=== PATIENT | male | born 1935 | race African-American/Black ===

== ENCOUNTER 2017-02-24 15:19 | Emergency (ER) | payer MEDICARE, OTHER ==
[2017-02-24 15:29] VITALS: BP 133/69
--- NOTE | 2017-02-24 16:30 | RAD ---
HISTORY: Fatigue COMPARISONS: None VIEWS:1: Single frontal portable view of the chest at 4:08 PM FINDINGS: LINES AND TUBES: None. CARDIOMEDIASTINAL SILHOUETTE: The cardiomediastinal silhouette is normal for portable technique. PLEURA: The costophrenic angles are sharp. No pleural abnormalities are noted. LUNG PARENCHYMA: The lungs are clear. ABDOMEN: The upper abdomen is clear. There is no subphrenic gas. BONES AND SOFT TISSUES: No bone or soft tissue abnormalities are noted. IMPRESSION: NO ACTIVE CARDIOPULMONARY DISEASE.
[2017-02-24 16:38] LABS: Hematocrit 37 % (42-52); Hemoglobin 12.3 g/dl (14.0-18.0); Mean Corpuscular HGB Conc 33 g/dl (31-36); Mean Corpuscular Hemoglobin 32 pg (27-31); Mean Corpuscular Volume 97 fL (80-94); Mean Platelet Volume 8 um3 (7.4-10.4); Red Blood Count 3.84 10^6/ul (4.0-5.4); Red Cell Distribution Width 15 % (10.5-15); White Blood Count 4.7 10^3/ul (3.5-10.8)
[2017-02-24 16:55] LABS: Troponin I 0.01 ng/mL (<0.04)
[2017-02-24 17:01] LABS: Albumin 3.5 g/dL (3.2-5.2); BUN/Creatinine Ratio 15.2 (8-20); C Reactive Protein 2.45 mg/L (< 5.00); Calcium 8.9 mg/dL (8.6-10.3); EGFR African American 57.3 (>60); EGFR Non-African American 44.6 (>60); Globulin 3.2 g/dL (2-4); Potassium 4.2 mmol/L (3.5-5.0); Total Bilirubin 0.4 mg/dL (0.2-1.0); Total Protein 6.7 g/dL (6.4-8.9)
[2017-02-24 17:35] LABS: Urine Bacteria Absent (Absent); Urine Bilirubin Negative (Negative); Urine Glucose Negative (Negative); Urine Nitrite Negative (Negative)
--- NOTE | 2017-02-27 15:36 | ED ---
Tom Altamirano Alfonso, scribed for Jose Daniel Santos MD on 02/24/17 at 1557 . Altered Mental Status - HPI Summary HPI Summary: This patient is an 81 year old male presenting to [facility] for altered mental status since a few days ago. He reports "feeling fine." His reports him sleeping more often and worsening forgetfulness. He denies pain, cough, and change in appetite. Symptoms aggravated and alleviated by nothing. - History Of Current Complaint Chief Complaint: EDGeneral Stated Complaint: GENERAL ILLNESS Time Seen by Provider: 02/24/17 15:38 Hx Obtained From: Patient, Family/Flight Manager - Onset/Duration: Still Present Timing: Constant, Lasting Days - A few days ago Severity Initially: Moderate Severity Currently: Moderate Aggravating Factor(s): Nothing Alleviating Factor(s): Nothing Associated Signs And Symptoms: Positive: Negative - Negative pain, cough, and change in appetite. PMH/Surg Hx/FS Hx/Imm Hx Sensory History: Denies: Hx Deafness Opthamlomology History: Denies: Hx Legally Blind Infectious Disease History: No Infectious Disease History: Denies: Traveled Outside the [place] in Last 30 Days - Family History Known Family History: Positive: Other - Denies cancer Negative: Cardiac Disease Review of Systems Negative: Cough Positive: Arthralgia - Negative pain Neurological: Other - Positive AMS per reporting him sleeping more often and worsening forgetfulness; Negative change in appetite All Other Systems Reviewed And Are Negative: Yes Physical Exam Triage Information Reviewed: Yes Vital Signs On Initial Exam: Initial Vitals Temp Pulse Resp BP Pulse Ox 97.2 F 123 20 133/69 100 02/24/17 15:27 02/24/17 15:27 02/24/17 15:27 02/24/17 15:27 02/24/17 15:27 Vital Signs Reviewed: Yes Appearance: Positive: Well-Appearing, No Pain Distress Skin: Positive: Warm, Skin Color Reflects Adequate Perfusion, Dry Head/Face: Positive: Normal Head/Face Inspection Eyes: Positive: Normal ENT: Positive: Normal ENT inspection Neck: Positive: Supple, Nontender Respiratory/Lung Sounds: Positive: Clear to Auscultation, Breath Sounds Present Cardiovascular: Positive: RRR Abdomen Description: Positive: Nontender, Soft Bowel Sounds: Positive: Present Musculoskeletal: Positive: Normal Neurological: Positive: Normal, Sensory/Motor Intact, CN Intact II-III. Negative: Alert, Oriented to Person Place, Time - Alert, oriented to person and place. Not oriented to time. Psychiatric: Positive: Normal Diagnostics - Vital Signs Vital Signs Temp Pulse Resp BP Pulse Ox 02/24/17 15:27 97.2 F 123 20 133/69 100 - Laboratory Lab Results: Lab Results 02/24/17 02/24/17 02/24/17 Range/Units 16:24 16:24 16:24 WBC 4.7 (3.5-10.8) 10^3/ul RBC 3.84 L (4.0-5.4) 10^6/ul Hgb 12.3 L (14.0-18.0) g/dl Hct 37 L (42-52) % MCV 97 H (80-94) fL MCH 32 H (27-31) pg MCHC 33 (31-36) g/dl RDW 15 (10.5-15) % Plt Count 158 (150-450) 10^3/ul MPV 8 (7.4-10.4) um3 Neut % (Auto) 56.4 (38-83) % Lymph % (Auto) 31.3 (25-47) % [place] % (Auto) 8.1 (1-9) % Eos % (Auto) 3.0 (0-6) % Baso % (Auto) 1.2 (0-2) % Absolute Neuts (auto) 2.7 (1.5-7.7) 10^3/ul Absolute Lymphs (auto) 1.5 (1.0-4.8) 10^3/ul Absolute Monos (auto) 0.4 (0-0.8) 10^3/ul Absolute Eos (auto) 0.1 (0-0.6) 10^3/ul Absolute Basos (auto) 0.1 (0-0.2) 10^3/ul Absolute Nucleated RBC 0.01 10^3/ul Nucleated RBC % 0.1 INR (Anticoag Therapy) 1.01 (0.89-1.11) Sodium 138 (133-145) mmol/L Potassium 4.2 (3.5-5.0) mmol/L Chloride 105 (101-111) mmol/L Carbon Dioxide 28 (22-32) mmol/L Anion Gap 5 (2-11) mmol/L BUN 23 (6-24) mg/dL Creatinine 1.51 H (0.67-1.17) mg/dL Est GFR ( Amer) 57.3 (>60) Est GFR (Non-Af Amer) 44.6 (>60) BUN/Creatinine Ratio 15.2 (8-20) Glucose 100 (70-100) mg/dL Lactic Acid (0.5-2.0) mmol/L Calcium 8.9 (8.6-10.3) mg/dL Total Bilirubin 0.40 (0.2-1.0) mg/dL AST 26 (13-39) U/L ALT 37 (7-52) U/L Alkaline Phosphatase 70 (34-104) U/L Troponin I 0.01 (<0.04) ng/mL C-Reactive Protein 2.45 (< 5.00) mg/L Total Protein 6.7 (6.4-8.9) g/dL Albumin 3.5 (3.2-5.2) g/dL Globulin 3.2 (2-4) g/dL Albumin/Globulin Ratio 1.1 (1-3) Urine Color Urine Appearance Urine pH (5-9) Ur Specific [place] (1.010-1.030) Urine Protein (Negative) Urine Ketones (Negative) Urine Blood (Negative) Urine Nitrate (Negative) Urine Bilirubin (Negative) Urine Urobilinogen (Negative) Ur Leukocyte Esterase (Negative) Urine WBC (Auto) (Absent) Urine RBC (Auto) (Absent) Ur Squamous Epith Cells (Absent) Urine Bacteria (Absent) Urine Glucose (Negative) 02/24/17 02/24/17 Range/Units 16:24 17:26 WBC (3.5-10.8) 10^3/ul RBC (4.0-5.4) 10^6/ul Hgb (14.0-18.0) g/dl Hct (42-52) % MCV (80-94) fL MCH (27-31) pg MCHC (31-36) g/dl RDW (10.5-15) % Plt Count (150-450) 10^3/ul MPV (7.4-10.4) um3 Neut % (Auto) (38-83) % Lymph % (Auto) (25-47) % [place] % (Auto) (1-9) % Eos % (Auto) (0-6) % Baso % (Auto) (0-2) % Absolute Neuts (auto) (1.5-7.7) 10^3/ul Absolute Lymphs (auto) (1.0-4.8) 10^3/ul Absolute Monos (auto) (0-0.8) 10^3/ul Absolute Eos (auto) (0-0.6) 10^3/ul Absolute Basos (auto) (0-0.2) 10^3/ul Absolute Nucleated RBC 10^3/ul Nucleated RBC % INR (Anticoag Therapy) (0.89-1.11) Sodium (133-145) mmol/L Potassium (3.5-5.0) mmol/L Chloride (101-111) mmol/L Carbon Dioxide (22-32) mmol/L Anion Gap (2-11) mmol/L BUN (6-24) mg/dL Creatinine (0.67-1.17) mg/dL Est GFR ( Amer) (>60) Est GFR (Non-Af Amer) (>60) BUN/Creatinine Ratio (8-20) Glucose (70-100) mg/dL Lactic Acid 1.5 (0.5-2.0) mmol/L Calcium (8.6-10.3) mg/dL Total Bilirubin (0.2-1.0) mg/dL AST (13-39) U/L ALT (7-52) U/L Alkaline Phosphatase (34-104) U/L Troponin I (<0.04) ng/mL C-Reactive Protein (< 5.00) mg/L Total Protein (6.4-8.9) g/dL Albumin (3.2-5.2) g/dL Globulin (2-4) g/dL Albumin/Globulin Ratio (1-3) Urine Color Yellow Urine Appearance Clear Urine pH 5.0 (5-9) Ur Specific [place] 1.019 (1.010-1.030) Urine Protein 2+(100 mg/dl) H (Negative) Urine Ketones Negative (Negative) Urine Blood Negative (Negative) Urine Nitrate Negative (Negative) Urine Bilirubin Negative (Negative) Urine Urobilinogen Negative (Negative) Ur Leukocyte Esterase Negative (Negative) Urine WBC (Auto) Absent (Absent) Urine RBC (Auto) Absent (Absent) Ur Squamous Epith Cells Present H (Absent) Urine Bacteria Absent (Absent) Urine Glucose Negative (Negative) Result Diagrams: 02/24/17 16:24 02/24/17 16:24 Lab Statement: Any lab studies that have been ordered have been reviewed, and results considered in the medical decision making process. - Radiology CXR Xray Interpretation: No Acute Changes - NO ACTIVE CARDIOPULMONARY DISEASE. Radiology Interpretation Completed By: Radiologist Altered Mental Statu Course/Dx - Course Course Of Treatment: Mr. Sanchez was brought in by his when they felt they could not get a timely appointment with his PMD. He has been in decline and getting gradually weaker and she can see a time when she won't be able to take care of him. His exam and W/U here were negative for an acute process and he is referred back to his PMD. - Diagnoses Discharge Diagnoses: Weakness Discharge - Discharge Plan Condition: Stable Disposition: HOME Patient Education Materials: Weakness (ED) Referrals: [facility] [Provider Group] - 3 Days The documentation as recorded by the Tom kwon Alfonso accurately reflects the service I personally performed and the decisions made by me, Jose Daniel Santos MD.
== END 2017-02-24 18:14 | disposition home or self-care (01) ==
LOC: ED 15:19
DX: R53.1 Weakness (principal); R53.83 Other fatigue; R41.82 Altered mental status, unspecified
CPT/HCPCS: 36415; 71010; 80053; 81003; 81015; 83605; 84484; 85025; 85610; 86140; 87040; 99282

== ENCOUNTER 2017-04-24 18:12 | Emergency (ER) | payer MEDICARE, OTHER ==
[2017-04-24 18:17] VITALS: BP 151/69
--- NOTE | 2017-04-24 18:49 | UC ---
Mayank Altamirano Benjamin, scribed for Timothy Goodrich MD on 04/24/17 at 1837 . Lower Extremity/Ankle HPI - HPI Summary HPI Summary: 82yo male comes to for left foot/ankle swelling since last Monday. Pt denies any pain in calf or anywhere else. Pt has hx of cardiac stents but none in the legs or in his groin. No Hx of DVT. Pt takes Lasix pills. Denies any SOB or injuries. Pt had similar swelling 2-3 months ago that spontaneously resolved after limiting use of his feet and low sodium diet. - History of Current Complaint Chief Complaint: UCLowerExtremity Stated Complaint: SWELLING IN LEG Time Seen by Provider: 04/24/17 18:20 Hx Obtained From: Patient, Family/Director Drug - Onset/Duration: Lasting Days - since Monday, Still Present Severity Initially: Mild Severity Currently: Moderate Pain Intensity: 0 Pain Scale Used: 0-10 Numeric Aggravating Factor(s): Nothing Alleviating Factor(s): Nothing Able to Bear Weight: Yes - Allergies/Home Medications Allergies/Adverse Reactions: Allergies Allergy/AdvReac Type Severity Reaction Status Date / Time No Known Allergies Allergy Verified 04/24/17 18:18 Home Medications: Home Medications Allopurinol TAB* [Zyloprim 100 MG TAB*] 04/24/17 [History] Atorvastatin* [Lipitor 10 MG*] 04/24/17 [History] Escitalopram Oxalate [Lexapro 10 mg] 04/24/17 [History Confirmed 04/24/17] Furosemide TAB* [Lasix TAB*] 04/24/17 [History] Losartan TAB* [Cozaar TAB*] 04/24/17 [History] Memantine XR CAP* [Namenda XR CAP*] 04/24/17 [History] Omeprazole CAP* [Prilosec CAP* 20 MG] 04/24/17 [History] PMH/Surg Hx/FS Hx/Imm Hx Cardiovascular History: Hypertension, Other - cardiac stents Other Cardiovascular History: . - Surgical History Surgical History: Yes Surgery Procedure, Year, and Place: Stents - Family History Known Family History: Positive: Other - Denies cancer Negative: Cardiac Disease - Social History Occupation: Employed Full-time - [place]: With Family Alcohol Use: None Substance Use Type: None Smoking Status (MU): Never Smoked Tobacco Review of Systems Constitutional: Negative Skin: Negative Eyes: Negative ENT: Negative Respiratory: Negative Cardiovascular: Negative Gastrointestinal: Negative Genitourinary: Negative Motor: Negative Neurovascular: Negative Musculoskeletal: Edema - left leg swelling Neurological: Negative Psychological: Negative All Other Systems Reviewed And Are Negative: Yes Physical Exam Triage Information Reviewed: Yes Appearance: Well-Appearing, No Pain Distress, Well-Nourished Vital Signs: Initial Vital Signs Temp 97.8 F 04/24/17 18:13 Pulse 101 04/24/17 18:13 Resp 18 04/24/17 18:13 BP 151/69 04/24/17 18:13 Pulse Ox 99 04/24/17 18:13 Vital Signs Reviewed: Yes Eyes: Positive: Conjunctiva Clear ENT: Positive: Normal ENT inspection, Hearing grossly normal Neck: Positive: Supple, Nontender Respiratory: Positive: Lungs clear, Normal breath sounds, No respiratory distress Cardiovascular: Positive: RRR, Pulses Normal, Brisk Capillary Refill Abdomen Description: Positive: Nontender, Soft Bowel Sounds: Positive: Present Musculoskeletal: Positive: ROM Intact, Edema @ - left foot and ankle., Other: - no swelling in calf, no tenderness in foot, ankle, calf, or the rest of his left leg Neurological: Positive: Alert, Muscle Tone Normal Psychological: Positive: Age Appropriate Behavior Skin: Negative: rashes, breakdown Lower Extremity Course/Dx - Course Course Of Treatment: Reviewed pts medication and allergy lists. High blood pressure noted. Blood pressure noted and patient informed to follow up with PCP. NO CLINICAL EVIDENCE OF DVT AT THIS TIME. NO SOB/LUNGS ARE CTA. FOOT IS NOT PAINFUL OR TENDER. LABS DRAWN FOR F/U WITH PMD TOMORROW. - Differential Dx/Diagnosis Provider Diagnoses: LEFT FOOT AND ANKLE SWELLING. Hypertension. Discharge - Discharge Plan Condition: Stable Disposition: HOME Patient Education Materials: Hypertension (ED), Edema (ED) Referrals: Breana Price MD [Medical Doctor] - [facility] [Provider Group] Additional Instructions: Your Blood Pressure was elevated today, please follow up with your primary care physician for follow up within one week. FOLLOW UP WITH YOUR DOCTOR. CALL HER TOMORROW FOR FURTHER EVALUATION OF YOUR SWOLLEN LEFT FOOT AND ANKLE. YOU HAD BLOOD WORK DONE IN THE URGENT CARE CLINIC TODAY. THE RESULTS WILL BE AVAILABLE TOMORROW, 04/25/17; DISCUSS THIS WITH YOUR DOCTOR. YOUR CALF AND THE REST OF YOUR LEG WERE NOT SWOLLEN OR TENDER. AT THIS TIME IT DOES NOT APPEAR THAT YOU HAVE A BLOOD CLOT IN YOUR LEG. YOU MAY NEED AN ULTRASOUND OF YOUR LEG IF THE SWELLING SPREADS OR PERSISTS. GO TO FOR ANY WORSENING OF YOUR CONDITION; SPREAD OF THE SWELLING, SHORTNESS OF BREATH, YOU FEEL ILL OR QUESTIONS OR CONCERNS. The documentation as recorded by the Mayank kwon Benjamin accurately reflects the service I personally performed and the decisions made by me, Timothy Goodrich MD.
[2017-04-25 11:00] LABS: Hematocrit 38 % (42-52); Hemoglobin 12.6 g/dl (14.0-18.0); Mean Corpuscular HGB Conc 33 g/dl (31-36); Mean Corpuscular Hemoglobin 33 pg (27-31); Mean Corpuscular Volume 99 fL (80-94); Mean Platelet Volume 9 um3 (7.4-10.4); Red Blood Count 3.84 10^6/ul (4.0-5.4); Red Cell Distribution Width 15 % (10.5-15); White Blood Count 5.7 10^3/ul (3.5-10.8)
--- NOTE | 2017-04-25 18:50 | ED ---
Course/Dx - Course Course Of Treatment: LAB RESULTS OF CBC AND BNP;. CALL PATIENT, LET HER KNOW HER BNP IS ELEVATED WHICH COULD MEAN CHF. - Diagnoses Provider Diagnoses: Dyspnea
[2017-04-25 20:46] LABS: Albumin 3.5 g/dL (3.2-5.2); BUN/Creatinine Ratio 15.3 (8-20); Calcium 8.8 mg/dL (8.6-10.3); EGFR Non-African American 49.7 (>60); Globulin 3.9 g/dL (2-4); Potassium 4.4 mmol/L (3.5-5.0); Total Bilirubin 0.4 mg/dL (0.2-1.0); Total Protein 7.4 g/dL (6.4-8.9); Uric Acid 7.3 mg/dL (4.4-7.6)
== END 2017-04-24 18:45 | disposition home or self-care (01) ==
LOC: UCEAST 18:12
DX: R60.0 Localized edema (principal); M25.472 Effusion, left ankle; I10 Essential (primary) hypertension; Z95.5 Presence of coronary angioplasty implant and graft
CPT/HCPCS: 36415; 80053; 83880; 84550; 85025; 99211; G0463

== ENCOUNTER 2019-01-29 20:45 | Emergency (ER) | payer MEDICARE, OTHER ==
[2019-01-29] MEDS ORDERED: Calcium CHLORIDE 10% SYRINGE* 1 GM/10 ML ONE (20:50)
[2019-01-29] MEDS ORDERED: Sodium Bicarbonate 8.4%* 50 ML SYRINGE ONE ×2 (20:51→21:00)
[2019-01-29] MEDS ORDERED: EPINEPHrine SYR 0.1MG/ML* SYRINGE ONE ×3 (20:52→20:59)
[2019-01-29 21:07] VITALS: BP 0/0
--- NOTE | 2019-01-29 21:16 | ED ---
Cardiac Resuscitation - HPI Summary HPI Summary: LEVEL 5 CAVEAT Patient arrival to ED at 184. The patient is an 83 y/o M presenting to [facility] arriving by ambulance with chief complaint of vomiting that turned to respiratory distress and respiratory failure, leading to intubation and cardiac arrest with EMS arriving to the patient's home at 2005. EMS reports that the patient had a pulse of 70 BPM on arrival, but then went into asystole prior to starting two rounds of CPR starting around 2014 and administering two doses of epinephrine in route. CPR continued until arrival until expiration at 2100. - History of Current Complaint Stated Complaint: ABC PER EMS Hx Obtained From: EMS Hx From Patient Unobtainable Due To: Extremis - patient in cardiac arrest upon arrival Onset/Duration: Minutes/Hours: - 30 mintues Arrest Witnessed: Yes - Allergies/Home Medications Allergies/Adverse Reactions: Allergies Allergy/AdvReac Type Severity Reaction Status Date / Time No Known Allergies Allergy Verified 04/24/17 18:18 - Past Medical History Past Medical History: Unobtainable Due to Extremis, Other: - cardiac hx with pacemaker - Family History Family History: Unobtainable Due to Extremis - Social History Social History: Lives with Family - Review of Systems Review of Systems: Unobtainable Due to Extremis - LEVEL 5 CAVEAT - vomiting and respiratory distress Physical Examination - Summary Physical Exam Summary: ENT: emesis from nose Eyes: Pupils fixed and dilated Respiratory: difficulty opening airway Abdomen: grossly distended abd - Physical Examination Triage Information Reviewed: Yes Physical Exam Additional Comments: LEVEL 5 CAVEAT Cardiac Resus. Course/Dx - Course Course Of Treatment: LEVEL 5 CAVEAT. Nurses notes reviewed. Upon arrival at 194, the patient is receving CPR from EMS. In the ambulance he received 2 rounds of CPR and 2 rounds of epinephrine. Physical exam reveals pupils to be fixed and dilated, grossly distended abdomen with emesis from nose. Respiratory therapy was unable to evaluate tube position. I was able to visualize that the tube was not through the vocal cords with Glidescope. CPR was continued with one shock delivered for fine VF. The patient was intubated on first attempt by me. A few more rounds of ACLS was performed. Two successive bedside echos showed cardiac standstil. Time of : 2100. I discussed case with medical services manager, Kaylene Dennis, who releases the body without atuposy at 2150. - Cardiac Resuscitation Differential Dx/HPI/PQRI: Acute Myocardial Infarct, Asystole, Cardiac Rhythm Disturbance, Pulmonary Edema, Respiratory Failure, Sudden - Diagnoses Provider Diagnoses: Cardiac arrest, CKD (chronic kidney disease) stage 3, GFR 30-59 ml/min, CHF ( congestive heart failure) - Provider Notifications Discussed Care Of Patient With: Rebecca Dennis - medical services manager Time Discussed With Above Provider: 19:50 Instructed by Provider To: Other - I consulted with Kaylene Dennis who releases the patient's body at this time. Discharge - Sign-Out/Discharge Documenting (check all that apply): Patient Departure - Patient has . Patient Received Moderate/Deep Sedation with Procedure: No - Discharge Plan Condition: Disposition: Referrals: Breana Price MD [Primary Care Provider] - - Billing Disposition and Condition Condition: Disposition: - Attestation Statements Document Initiated by Josiibe: Yes Documenting Scribe: Miriam Fair Provider For Whom Scribe is Documenting (Include Credential): Dr. Leonardo Rosas MD Scribe Attestation: Miriam Altamirano scribed for Dr. Leonardo Rosas MD on 01/30/19 at 0350. Scribe Documentation Reviewed: Yes Provider Attestation: The documentation as recorded by the Miriam kwon accurately reflects the service I personally performed and the decisions made by me, Dr. Leonardo Rosas MD Status of Scribe Document: Viewed
== END 2019-01-29 21:01 | disposition expired ==
LOC: ED 20:45
DX: I46.9 Cardiac arrest, cause unspecified (principal); I50.9 Heart failure, unspecified; N18.3 Chronic kidney disease, stage 3 (moderate); Z95.0 Presence of cardiac pacemaker
CPT/HCPCS: 99284; J0171